=== PATIENT | female | born 1995 | race Two or more races ===

== ENCOUNTER 2016-10-02 17:05 | Emergency (ER) | payer MEDICAID, OTHER ==
[~2016-10-02] VITALS: Ht 170.2 cm; Wt 81.6 kg
[2016-10-02 17:07] VITALS: BP 109/73
[2016-10-02] MEDS ORDERED: IBUPROFEN 600 MG TABLET PO ONE ×2 (17:15→17:30)
== END 2016-10-02 17:25 | disposition home or self-care (01) ==
LOC: ER 17:07
DX: T63.301A Toxic effect of unspecified spider venom, accidental (unintentional), initial encounter (principal); L03.115 Cellulitis of right lower limb; Y92.89 Other specified places as the place of occurrence of the external cause
CPT/HCPCS: A4606; Z7610